=== PATIENT | female | born 1980 | race Caucasian/White ===

== ENCOUNTER → 2017-07-04 | Day surgery (SDC) | payer OTHER ==
[2017-06-23 11:53] VITALS: Ht 162.6 cm; Wt 86.4 kg
[~2017-07-04] VITALS: Ht 162.6 cm; Wt 86.4 kg
[~2017-07-04] MED LIST: AZEL0.055 OP; CHOL1000 PO; CITA40TA12 PO; CYAN100T6 PO; EPP3/2 IM; FENTANYL CITRATE INJ 50 MCG/1 ML 2 ML VIAL ONE; FLUT1INH INH; FLUT50SP45 NAE; LIDOCAINE HCL 2% 2 ML VIAL (20MG/ML) ONE; LISI40TA PO; MAGN250T3 PO; MONT1TAB3 PO; OMEG10007 PO; PANT40TA PO; PROPOFOL IV EMULSION 10 MG/ML 20 ML VIAL ONE; SODIUM CHLORIDE 0.9% 500ML 500 ML IV ONE; [UNRECOGNIZED DRUG - OTHER] INH
--- NOTE | 2017-07-04 13:51 | Endo History and Physical ---
History & Physical Date of Service: July 04, 2017. Chief Complaint: GERD Referring Physician: Dr. Gtz History of Present Illness 37 yo CF who presents for EGD secondary to GERD. Past Surgical History Hx Cardiac Surgery: No Hx Internal Defibrillator: No Hx Pacemaker: No Hx Abdominal Surgery: Yes (HYSTER, SINA, 2 C-SECTIONS) Hx of Implantable Prosthesis: No Hx Cancer Surgery: No Hx Thoracic Surgery: No Hx Orthopedic: Yes (SPINAL CORD STIMULATOR PLACEMENT, 3 DISC FUSIONS, R HAND REPAIR) Hx Urinary Tract Surgery: No Family History Colon CA, Polyp, IBD Social History Smoking Status: Current Every Day Smoker Hx Substance Use: Yes (USES MEDICAL MARIJUANA 3-5 TIMES A DAY IN VAPOR FORM) Hx Alcohol Use: No Allergies Coded Allergies: Latex (Verified Allergy, Severe, ANAPHYLAXIS, 07/04/17) Aspirin (Verified Allergy, Mild, HIVES, 07/04/17) Ciprofloxacin (Verified Allergy, Mild, HIVES, 07/04/17) Vanilla (Verified Allergy, Mild, ANAPHYLAXIS, 07/04/17) Uncoded Allergies: TOMATOES (Allergy, Severe, ANAPHYLAXIS, 06/23/17) PEANUTS (Allergy, Mild, ANAPHYLAXIS, 06/23/17) Current Medications Reported Home Medications Medications Dose Route/Sig Max Daily Dose Days Date Category Singulair (Montelukast Sodium) 10 Mg Tab 1 Tab PO DAILY 90 07/04/17 Reported Celexa (Citalopram Hydrobromide) 40 Mg Tab 1 Tab PO DAILY 30 07/04/17 Reported Vitamin D3 (Cholecalciferol) 1,000 Unit Tab 1 Tab PO BID 30 06/23/17 Reported Vitamin B12 100 Mcg (Cyanocobalamin) 100 Mcg Tab 50 Mcg PO DAILY 06/23/17 Reported Protonix (Pantoprazole Sodium) 40 Mg Tab 1 Tab PO DAILY 30 06/23/17 Reported Magnesium 250 mg (Magnesium) 1 Tab Tab 1 Tab PO DAILY 06/23/17 Reported Zestril (Lisinopril) 40 Mg Tab 40 Mg PO DAILY 06/23/17 Reported Allergy Nasal [place] 24 Ho (Fluticasone Propionate (Nasal)) 50 Mcg/Act Spr 2 Sprays LUIS DAILY 06/23/17 Reported [place]-3 (Fish Oil) 1 Ea Cap 1 Cap PO BID 06/23/17 Reported Epipen (Epinephrine) 0.3 Mg/0.3 Ml Inj 0.3 Mg IM UD PRN 06/23/17 Reported Breo Ellipta (Fluticasone Furoate-Vilanterol) 1 Inh Inh 1 Inha INH DAILY 06/23/17 Reported Azelastine Hcl (Azelastine Hcl (Ophth)) 0.05 % Adiel 1 Drops OP BID 06/23/17 Reported [Thc Vapor 17%] INH DIRECTED PRN 06/23/17 Reported Vital Signs Weight (Kilograms): 86.36 Height (Feet): 5 Height (Inches): 4 Date Time Temp Pulse Resp B/P (MAP) Pulse Ox O2 Delivery O2 Flow Rate FiO2 07/04/17 13:15 37.4 82 20 125/81 (96) 97 Room Air Physical Exam General Appearance: WD/WN, no apparent distress Respiratory/Chest: Auscultation: breath sounds normal Cardiovascular: Heart Auscultation: RRR Abdomen: Bowel Sounds: normal Inspection & Palpation: soft, non-distended, no tenderness, guarding & rebound Assessment and Plan Assessment: 37 yo CF who presents for EGD secondary to GERD. Plan: Proceed with EGD.
--- NOTE | 2017-07-04 14:39 | Discharge Instructions ---
Endoscopy Patient Instructions Date / Procedure(s) Performed July 04, 2017. EGD Allergy Information Coded Allergies: Latex (Verified Allergy, Severe, ANAPHYLAXIS, 07/04/17) Aspirin (Verified Allergy, Mild, HIVES, 07/04/17) Ciprofloxacin (Verified Allergy, Mild, HIVES, 07/04/17) Vanilla (Verified Allergy, Mild, ANAPHYLAXIS, 07/04/17) Uncoded Allergies: TOMATOES (Allergy, Severe, ANAPHYLAXIS, 06/23/17) PEANUTS (Allergy, Mild, ANAPHYLAXIS, 06/23/17) Discharge Date / Findings July 04, 2017. Gastric ulcers s/p biopsies Medication Instructions OK to resume all medications today as prescribed Reported Home Medications Medications Dose Route/Sig Max Daily Dose Days Date Category Singulair (Montelukast Sodium) 10 Mg Tab 1 Tab PO DAILY 90 07/04/17 Reported Celexa (Citalopram Hydrobromide) 40 Mg Tab 1 Tab PO DAILY 30 07/04/17 Reported Vitamin D3 (Cholecalciferol) 1,000 Unit Tab 1 Tab PO BID 30 06/23/17 Reported Vitamin B12 100 Mcg (Cyanocobalamin) 100 Mcg Tab 50 Mcg PO DAILY 06/23/17 Reported Protonix (Pantoprazole Sodium) 40 Mg Tab 1 Tab PO DAILY 30 06/23/17 Reported Magnesium 250 mg (Magnesium) 1 Tab Tab 1 Tab PO DAILY 06/23/17 Reported Zestril (Lisinopril) 40 Mg Tab 40 Mg PO DAILY 06/23/17 Reported Allergy Nasal [place] 24 Ho (Fluticasone Propionate (Nasal)) 50 Mcg/Act Spr 2 Sprays LUIS DAILY 06/23/17 Reported [place]-3 (Fish Oil) 1 Ea Cap 1 Cap PO BID 06/23/17 Reported Epipen (Epinephrine) 0.3 Mg/0.3 Ml Inj 0.3 Mg IM UD PRN 06/23/17 Reported Breo Ellipta (Fluticasone Furoate-Vilanterol) 1 Inh Inh 1 Inha INH DAILY 06/23/17 Reported Azelastine Hcl (Azelastine Hcl (Ophth)) 0.05 % Adiel 1 Drops OP BID 06/23/17 Reported [Thc Vapor 17%] INH DIRECTED PRN 06/23/17 Reported Provider Instructions Activity Restrictions - No exercising or heavy lifting for 24 hours. - Do not drink alcohol the day of the procedure. - Do not drive a car or operate machinery until the day after the procedure. - Do not make any important decisions or sign important papers in 24 hours after the procedure. Following Day: - Return to full activity which may include returning to work/school. Diet Start your diet with liquids and light foods (jello, soup, juice, toast). Then eat your usual diet if not nauseated. Treatment For Common After Affects For mild abdominal pain, bloating, or excessive gas: - Rest - Eat lightly - Lie on right side Follow-Up Information Follow-up with Dr. Gtz as scheduled Anesthesia Information What You Should Know You have had a procedure that required some medicine to reduce anxiety and discomfort. This treatment is called moderate sedation. After receiving the treatment, you may be sleepy, but you will be able to breathe on your own. The effects of the treatment may last for several hours. Follow these instructions along with Activity/Diet recommendations noted above: * Do NOT do anything where dizziness or clumsiness would be dangerous. * Rest quietly at home today, then you can be up and about tomorrow. * Have a responsible person stay with you the rest of today. * You may have had an I.V. today. If so, you may take the dressing off later today. Recommendations Call your doctor if: * Trouble breathing * Continuous vomiting for more than 24 hours * Temperature above 101 degrees * Severe abdominal pain or bloating * Pain not relieved by pain medicine ordered * There is increased drainage or redness from any incision * A large amount of rectal bleeding greater than 2-3 tablespoons. (If you had a polyp/s removed or have hemorrhoids, a small amount of blood - from the rectum is to be expected.) * You have any unanswered questions or concerns. IN THE EVENT OF A SERIOUS EMERGENCY, GO TO THE NEAREST EMERGENCY ROOM Your discharge instructions were prepared by provider Delroy Ghosh. Patient Instructions Signature Page Krystyan Bowie Patient (or Guardian) Signature/Date: I have read and understand the instructions given to me by my caregivers. Caregiver/RN/Doctor Signature/Date: The above-named patient and/or guardian has received patient instructions on this date. + Original Patient Signature Page (only) stays with chart. Please make copy for patient.
[2017-07-04 14:46] VITALS: BP 123/73; PULSE 74; O2SAT 98
--- NOTE | 2017-07-04 15:12 | Anesthesiology Progress Note ---
Anesthesia Post Op Note Date & Time July 04, 2017 at 15:12 Vital Signs Pain Intensity: 0 Vital Signs Past 12 Hours Date Time Temp Pulse Resp B/P (MAP) Pulse Ox O2 Delivery O2 Flow Rate FiO2 07/04/17 14:46 74 20 123/73 (90) 98 Room Air 07/04/17 14:32 79 20 131/96 (108) 98 Room Air 07/04/17 14:17 36.0 77 18 115/65 (82) 97 Room Air 07/04/17 13:15 37.4 82 20 125/81 (96) 97 Room Air Notes Mental Status: alert / awake / arousable, participated in evaluation Pt Amnestic to Procedure: Yes Nausea / Vomiting: adequately controlled Pain: adequately controlled Airway Patency, RR, SpO2: stable & adequate BP & HR: stable & adequate Hydration State: stable & adequate Anesthetic Complications: no major complications apparent
--- NOTE | 2017-07-04 15:26 | GI REPORT ---
Patient Name: Krystyna Bowie Procedure Date: 07/04/2017 1:36 PM Date of : 1980 Admit Type: Outpatient Age: 37 Gender: Female Attending MD: Delroy Ghosh DO Procedure: Upper GI endoscopy Providers: Delroy Ghosh DO Referring MD: Jose G Gtz Indications: Gastro-esophageal reflux disease Medicines: Monitored Anesthesia Care Complications: No immediate complications. Estimated Blood Loss: Estimated blood loss: none. Procedure: Pre-Anesthesia Assessment: - Prior to the procedure, a History and Physical was performed, and patient medications and allergies were reviewed. The patient's tolerance of previous anesthesia was also reviewed. The risks and benefits of the procedure and the sedation options and risks were discussed with the patient. All questions were answered, and informed consent was obtained. Prior Anticoagulants: The patient has taken no previous anticoagulant or antiplatelet agents. ASA Grade Assessment: III - A patient with severe systemic disease. After reviewing the risks and benefits, the patient was deemed in satisfactory condition to undergo the procedure. After obtaining informed consent, the endoscope was passed under direct vision. Throughout the procedure, the patient's blood pressure, pulse, and oxygen saturations were monitored continuously. The scope was introduced through the mouth, and advanced to the second part of duodenum. After obtaining informed consent, the endoscope was passed under direct vision. Throughout the procedure, the patient's blood pressure, pulse, and oxygen saturations were monitored continuously.The upper GI endoscopy was accomplished without difficulty. The patient tolerated the procedure well. Findings: The esophagus was normal. Many non-bleeding cratered gastric ulcers with no stigmata of bleeding were found in the gastric antrum. The largest lesion was 5 mm in largest dimension. Biopsies were taken with a cold forceps for histology. The examined duodenum was normal. Impression: - Normal esophagus. - Non-bleeding gastric ulcers with no stigmata of bleeding. Biopsied. - Normal examined duodenum. Recommendation: - Resume previous diet. - Continue present medications. - Await pathology results. - Return to primary care physician as previously scheduled. Delroy Ghosh DO 07/04/2017 3:26:41 PM This report has been signed electronically. Note Initiated On: 07/04/2017 1:36 PM Number of Addenda: 0 I attest to the content of the Intraoperative Record and orders documented therein, exceptions below {[id number]}
== END | disposition home or self-care (01) ==
LOC: C.GI 12:52
PROVIDERS: ATTEND Internal Medicine
DX: K21.9 Gastro-esophageal reflux disease without esophagitis (principal); K25.9 Gastric ulcer, unspecified as acute or chronic, without hemorrhage or perforation; F17.200 Nicotine dependence, unspecified, uncomplicated; J45.909 Unspecified asthma, uncomplicated; I25.10 Atherosclerotic heart disease of native coronary artery without angina pectoris; F32.9 Major depressive disorder, single episode, unspecified; M19.90 Unspecified osteoarthritis, unspecified site; E06.3 Autoimmune thyroiditis; G47.33 Obstructive sleep apnea (adult) (pediatric); Z90.710 Acquired absence of both cervix and uterus; Z90.49 Acquired absence of other specified parts of digestive tract; Z98.1 Arthrodesis status; Z80.0 Family history of malignant neoplasm of digestive organs; Z91.040 Latex allergy status; Z88.6 Allergy status to analgesic agent; Z88.1 Allergy status to other antibiotic agents; Z91.010 Allergy to peanuts; Z99.89 Dependence on other enabling machines and devices; Z86.73 Personal history of transient ischemic attack (TIA), and cerebral infarction without residual deficits